=== PATIENT | female | born 1935 | race Caucasian/White ===

== ENCOUNTER → 2016-11-07 | Outpatient (CLI) | payer MEDICARE, MEDICAID ==
[~2016-11-07] MED LIST: MEMA10TA11 PO; METO25TA6 PO; PANT40TA4 PO; PARO-41 PO; PREVACID
== END | disposition home or self-care (01) ==
LOC: MAMMO 08:24
PROVIDERS: ATTEND Specialist
DX: Z12.31 Encounter for screening mammogram for malignant neoplasm of breast (principal)
CPT/HCPCS: G0202

== ENCOUNTER 2017-09-24 10:17 | Emergency (ER) | payer MEDICARE, MEDICAID ==
[~2017-09-24] VITALS: Ht 157.5 cm; Wt 72.0 kg
[~2017-09-24 10:17] MED LIST changes: -MEMA10TA11 PO; +MEMA10TA2 PO
[2017-09-24] MEDS ORDERED: LISI2.5T47 PO (10:23)
[2017-09-24 11:17] LABS: BASOPHILS % 0.7 % (0.0-2.0); EOSINOPHILS % 2.5 % (0.0-5.0); HEMATOCRIT. 39.3 % (36.0-48.0); HEMOGLOBIN. 13.5 g/dL (12.0-16.0); LYMPHOCYTES % 26.5 % (20.0-50.0); MEAN CORPUSCULAR HEMOGLOBIN 35.1 pg (28.0-32.0); MEAN CORPUSCULAR VOLUME 101.7 fL (81.0-99.0); MEAN PLATELET VOLUME 8.8 fl (7.4-10.4); MONOCYTES % 7.5 % (2.0-8.0); NEUTROPHILS % 62.8 % (40.0-76.0); PLATELET 202 x1000/uL (130-400); RED BLOOD CELL COUNT 3.86 mill/uL (4.2-5.4); RED CELL DISTRIBUTION WIDTH 12.6 % (11.6-14.6)
[2017-09-24 11:30] LABS: CARBON DIOXIDE 28 mEq/L (21-32); CHLORIDE 110 mEq/L (98-107); TROPONIN I < 0.02 ng/mL (0.00-0.04)
[2017-09-24 12:11] VITALS: BP 144/74
[2017-09-24 12:19] LABS: CLARITY URINE CLOUDY (CLEAR); COLOR URINE DARK YELLOW (YELLOW); KETONES URINE TRACE (NEGATIVE); LEUKOCYTE ESTERASE URINE 2+ (NEGATIVE); NITRITE URINE NEGATIVE (NEGATIVE); OCCULT BLOOD URINE TRACE (NEGATIVE); PH URINE 5.5 (4.5-8.0); PROTEIN URINE NEGATIVE (NEGATIVE); SPECIFIC GRAVITY URINE 1.026 (1.005-1.030); UROBILINOGEN URINE 0.2 E.U./dL (0.2-1.0)
== END 2017-09-24 13:21 | disposition home or self-care (01) ==
LOC: ER 10:28
DX: S30.0XXA Contusion of lower back and pelvis, initial encounter (principal); R00.2 Palpitations; I10 Essential (primary) hypertension; W18.39XA Other fall on same level, initial encounter; Y93.89 Activity, other specified; Y92.89 Other specified places as the place of occurrence of the external cause; G89.29 Other chronic pain; M77.31 Calcaneal spur, right foot; E78.00 Pure hypercholesterolemia, unspecified
CPT/HCPCS: 36415; 71045; 72170; 73650; 80053; 81001; 83880; 84484; 85025; 93005; 99285

== ENCOUNTER 2018-11-12 17:16 | Inpatient (IN) | payer MEDICARE, MEDICAID ==
[~2018-11-12] VITALS: Ht 157.5 cm; Wt 69.9 kg
[~2018-11-12 17:16] MED LIST changes: +LISI2.5T47 PO
[2018-11-12] MEDS ORDERED: MORPHINE SULFATE 4 MG/ML CPJ (NOT FOR IM USE) IV STA (18:57)
[2018-11-12] MEDS ORDERED: ONDANSETRON HCL 4MG/2ML INJ IV STA (18:57)
[2018-11-12] MEDS ORDERED: SODIUM CHLORIDE 0.9% 1,000 ML IV ONE (18:57)
[2018-11-12 19:13] LABS: BASOPHILS % 0.5 % (0.0-2.0); EOSINOPHILS % 0.6 % (0.0-5.0); HEMOGLOBIN. 13.4 g/dL (12.0-16.0); LYMPHOCYTES % 12.6 % (20.0-50.0); MEAN CORPUSCULAR HEMOGLOBIN 34.8 pg (28.0-32.0); MEAN CORPUSCULAR VOLUME 103.5 fL (81.0-99.0); MEAN PLATELET VOLUME 8.5 fl (7.4-10.4); MONOCYTES % 5.3 % (2.0-8.0); PLATELET 205 x1000/uL (130-400); RED BLOOD CELL COUNT 3.87 mill/uL (4.2-5.4); RED CELL DISTRIBUTION WIDTH 12.9 % (11.6-14.6)
[2018-11-12 19:18] LABS: CHLORIDE 105 mEq/L (98-107)
[2018-11-12 19:21] LABS: INR 1.1; PARTIAL THROMBOPLASTIN TIME 25.5 sec (23.4-31.0); PROTHROMBIN TIME 10.7 sec (9.1-11.1)
[2018-11-12] MEDS ORDERED: MAGNESIUM/ALUMINUM HYDROXIDE/SIMETHICONE 30ML UDC PO PRN (22:30)
[2018-11-12] MEDS ORDERED: HYDRALAZINE 20MG/ML VIAL IV PRN (22:30)
[2018-11-12] MEDS ORDERED: DIPHENHYDRAMINE 50MG/ML VIAL IV PRN (22:30)
[2018-11-12] MEDS ORDERED: ACETAMINOPHEN 325MG TABLET PO PRN (22:30)
[2018-11-12] MEDS ORDERED: ONDANSETRON HCL 4MG/2ML INJ IV PRN (22:30)
[2018-11-12] MEDS ORDERED: CLONIDINE 0.1MG TABLET PO PRN (22:30)
[2018-11-12] MEDS ORDERED: IPRATROPIUM/ALBUTEROL 0.5-3(2.5)MG/3ML NEB INH PRN (22:30)
[2018-11-12] MEDS ORDERED: LORAZEPAM 2MG/ML CPJ IV PRN (22:30)
[2018-11-12] MEDS ORDERED: GUAIFENESIN 200MG/10ML SUGAR FREE UDC PO PRN (22:30)
[2018-11-12] MEDS ORDERED: NA PHOS,M-B/NA PHOS,DI-BA ENEMA 118ML PR PRN (22:30)
[2018-11-12 23:40] VITALS: BP 139/61
[2018-11-12] MEDS ORDERED: HYDRALAZINE 10 MG in SODIUM CHLORIDE 0.9% 49.5 ML IV PRN (23:45)
[2018-11-13 03:48] VITALS: BP 139/61
[2018-11-13 04:00] VITALS: BP 123/59
[2018-11-13 07:23] LABS: CHLORIDE 106 mEq/L (98-107)
[2018-11-13 07:40] LABS: BASOPHILS % 0.4 % (0.0-2.0); EOSINOPHILS % 0.4 % (0.0-5.0); HEMATOCRIT. 37.5 % (36.0-48.0); HEMOGLOBIN. 12.8 g/dL (12.0-16.0); LYMPHOCYTES % 23.2 % (20.0-50.0); MEAN CORPUSCULAR HEMOGLOBIN 35.2 pg (28.0-32.0); MEAN CORPUSCULAR VOLUME 103.1 fL (81.0-99.0); MEAN PLATELET VOLUME 8.9 fl (7.4-10.4); MONOCYTES % 7.2 % (2.0-8.0); NEUTROPHILS % 68.8 % (40.0-76.0); PLATELET 202 x1000/uL (130-400); RED BLOOD CELL COUNT 3.64 mill/uL (4.2-5.4); RED CELL DISTRIBUTION WIDTH 12.8 % (11.6-14.6)
[2018-11-13 08:00] VITALS: BP 120/54
[2018-11-13 12:00] VITALS: BP 122/57
[2018-11-13] MEDS ORDERED: VANCOMYCIN HCL 500 MG/VIAL ONE (12:08)
[2018-11-13] MEDS: DEXT 5%/0.45% NACL 1000ML 1,000 ML IV SCH (12:18)
[2018-11-13] MEDS ORDERED: BACITRACIN 15GM TUBE TOP ONE (15:04)
[2018-11-13 16:00] VITALS: BP 125/78
[2018-11-13 20:00] VITALS: BP 123/54
[2018-11-13] MEDS: ENOXAPARIN 40MG/0.4ML SYR SUBCUT SCH (20:06)
[2018-11-13] MEDS: SODIUM CHLORIDE 0.9% INJ 3ML FLUSH IVF SCH (22:05)
[2018-11-14] VITALS: BP 131/53
[2018-11-14 04:00] VITALS: BP 139/69
[2018-11-14] MEDS: SODIUM CHLORIDE 0.9% INJ 3ML FLUSH IVF SCH ×4 (04:27→22:14)
[2018-11-14] MEDS: DEXT 5%/0.45% NACL 1000ML 1,000 ML IV SCH ×2 (04:28→13:53)
[2018-11-14 06:45] LABS: BASOPHILS % 0.3 % (0.0-2.0); EOSINOPHILS % 0.7 % (0.0-5.0); HEMATOCRIT. 36.6 % (36.0-48.0); HEMOGLOBIN. 12.6 g/dL (12.0-16.0); LYMPHOCYTES % 16.8 % (20.0-50.0); MEAN CORPUSCULAR HEMOGLOBIN 35.5 pg (28.0-32.0); MEAN CORPUSCULAR VOLUME 103.1 fL (81.0-99.0); MEAN PLATELET VOLUME 8.7 fl (7.4-10.4); NEUTROPHILS % 72.2 % (40.0-76.0); PLATELET 190 x1000/uL (130-400); RED BLOOD CELL COUNT 3.55 mill/uL (4.2-5.4); RED CELL DISTRIBUTION WIDTH 12.8 % (11.6-14.6)
[2018-11-14 06:51] LABS: CHLORIDE 105 mEq/L (98-107)
[2018-11-14 07:01] LABS: CREATINE KINASE MB FRACTION 1.9 ng/mL (0.5-3.6); LDL CHOLESTEROL 70 mg/dL (5-100)
[2018-11-14 07:02] LABS: CREATINE KINASE 60 IU/L (26-192)
[2018-11-14 07:03] LABS: HDL CHOLESTEROL 41 mg/dL (40-59)
[2018-11-14 08:00] VITALS: BP 135/59
[2018-11-14] MEDS ORDERED: BACITRACIN 15GM TUBE TOP ONE (09:52)
[2018-11-14] MEDS ORDERED: VANCOMYCIN HCL 500 MG/VIAL ONE (09:53)
[2018-11-14] MEDS ORDERED: BUPIVACAINE HCL/DEXTROSE/PF 0.75% 2ML AMP INJ ONE (10:00)
[2018-11-14] MEDS ORDERED: MIDAZOLAM HCL 2 MG/2 ML VIAL ONE (10:41)
[2018-11-14] MEDS ORDERED: PROPOFOL 200MG/20ML VIAL IV ONE (10:41)
[2018-11-14] MEDS ORDERED: GLYCOPYRROLATE 0.2 MG/ML 2ML VIAL ONE (10:41)
[2018-11-14] MEDS ORDERED: LIDOCAINE HCL/PF 1% 10 MG/ML 5ML VIAL ONE (10:41)
[2018-11-14] MEDS ORDERED: METOCLOPRAMIDE HCL 10MG/2ML VIAL ONE (10:41)
[2018-11-14] MEDS ORDERED: FENTANYL CITRATE/PF 50MCG/ML 2ML VIAL ONE (10:41)
[2018-11-14] MEDS ORDERED: SUCCINYLCHOLINE CHLORIDE 200MG/10ML IV ONE (10:41)
[2018-11-14] MEDS ORDERED: ONDANSETRON HCL 4MG/2ML INJ ONE (10:41)
[2018-11-14] MEDS ORDERED: SODIUM CHLORIDE 0.9% 1,000 ML IV SCH (11:25)
[2018-11-14] MEDS ORDERED: HYDROMORPHONE HCL/PF 2MG/ML CPJ IV PRN (11:30)
[2018-11-14] MEDS ORDERED: ONDANSETRON HCL 4MG/2ML INJ IV PRN (11:30)
[2018-11-14] MEDS ORDERED: MEPERIDINE HCL/PF 25MG/ML CPJ IV PRN (11:30)
[2018-11-14] MEDS: CEFAZOLIN 1000MG PREMIX 50 ML IV SCH ×2 (13:54→22:14)
[2018-11-14 16:00] VITALS: BP 105/57
[2018-11-14 20:00] VITALS: BP 115/58
[2018-11-14] MEDS: ENOXAPARIN 40MG/0.4ML SYR SUBCUT SCH (21:00)
[2018-11-15] VITALS: BP 129/51
[2018-11-15] MEDS: HYDROCODONE/ACETAMINOPHEN 5/325MG TABLET PO PRN ×2 (01:01→10:14)
[2018-11-15] MEDS: DEXT 5%/0.45% NACL 1000ML 1,000 ML IV SCH ×2 (03:09→16:20)
[2018-11-15 04:00] VITALS: BP 123/55
[2018-11-15] MEDS: SODIUM CHLORIDE 0.9% INJ 3ML FLUSH IVF SCH ×3 (05:43→22:52)
[2018-11-15] MEDS: CEFAZOLIN 1000MG PREMIX 50 ML IV SCH ×3 (05:43→23:11)
[2018-11-15 08:00] VITALS: BP 126/61
[2018-11-15 12:00] VITALS: BP 127/41
[2018-11-15] MEDS: HYDROMORPHONE HCL/PF 2MG/ML CPJ IV PRN (14:30)
[2018-11-15 20:00] VITALS: BP 115/57
[2018-11-15] MEDS: ENOXAPARIN 40MG/0.4ML SYR SUBCUT SCH (23:11)
[2018-11-16] VITALS (7 sets, daily range): BP systolic 81–127; BP diastolic 42–54
[2018-11-16] MEDS: DEXT 5%/0.45% NACL 1000ML 1,000 ML IV SCH (00:44)
[2018-11-16] MEDS: SODIUM CHLORIDE 0.9% INJ 3ML FLUSH IVF SCH ×2 (05:23→14:00)
[2018-11-16] MEDS: CEFAZOLIN 1000MG PREMIX 50 ML IV SCH ×3 (05:54→22:00)
[2018-11-16] MEDS: DOCUSATE SODIUM 100MG CAPSULE PO PRN ×2 (06:40→09:32)
[2018-11-16] MEDS: HYDROMORPHONE HCL/PF 2MG/ML CPJ IV PRN ×2 (11:37→14:46)
[2018-11-16] MEDS: ENOXAPARIN 40MG/0.4ML SYR SUBCUT SCH (22:00)
[2018-11-17] VITALS (7 sets, daily range): BP systolic 97–133; BP diastolic 49–62
[2018-11-17] MEDS: HYDROMORPHONE HCL/PF 2MG/ML CPJ IV PRN (02:08)
[2018-11-17] MEDS: CEFAZOLIN 1000MG PREMIX 50 ML IV SCH ×2 (05:13→14:30)
[2018-11-17] MEDS: DOCUSATE SODIUM 100MG CAPSULE PO PRN (14:30)
== END 2018-11-17 17:52 | DRG 481 ==
LOC: ER 17:16 → 6EST 20:32 → ENRESERV 21:00
PROVIDERS: ADMIT Internal Medicine; ATTEND Internal Medicine
PROC: 0QS636Z Reposition Right Upper Femur with Intramedullary Internal Fixation Device, Percutaneous Approach (ICD-10-PCS; principal; 2018-11-14)
DX: S72.141A Displaced intertrochanteric fracture of right femur, initial encounter for closed fracture (principal); E46 Unspecified protein-calorie malnutrition; I11.0 Hypertensive heart disease with heart failure; I50.9 Heart failure, unspecified; S50.311A Abrasion of right elbow, initial encounter; D72.829 Elevated white blood cell count, unspecified; F41.9 Anxiety disorder, unspecified; F32.9 Major depressive disorder, single episode, unspecified; I45.10 Unspecified right bundle-branch block; F03.90 Unspecified dementia, unspecified severity, without behavioral disturbance, psychotic disturbance, mood disturbance, and anxiety; K21.9 Gastro-esophageal reflux disease without esophagitis; W01.0XXA Fall on same level from slipping, tripping and stumbling without subsequent striking against object, initial encounter; Y93.89 Activity, other specified; Y92.89 Other specified places as the place of occurrence of the external cause; Y99.8 Other external cause status; Z79.899 Other long term (current) drug therapy; Z86.73 Personal history of transient ischemic attack (TIA), and cerebral infarction without residual deficits; Z90.710 Acquired absence of both cervix and uterus; Z68.28 Body mass index [BMI] 28.0-28.9, adult
CPT/HCPCS: 36415; 71045; 73070; 73502; 76000; 80061; 82550; 82553; 83735; 84484; 93005; 93306; 93970; 96374; 96375; 97110; 97163; 97530; 99285; C1713; C1769; J0330; J0690; J1170; J1650; J2175; J2250; J2270; J2405; J2704; J2765; J3010; J3370; J3490; J7030; J7040; A4315

== ENCOUNTER 2018-11-17 17:45 | Inpatient (IN) | payer MEDICARE, MEDICAID ==
[~2018-11-17] VITALS: Ht 157.5 cm; Wt 70.8 kg
[2018-11-17] MEDS ORDERED: DIPHENHYDRAMINE 25MG CAPSULE PO PRN (19:30)
[2018-11-17] MEDS ORDERED: SODIUM CHLORIDE 0.9% INJ 3ML FLUSH IVF NR (19:30)
[2018-11-17] MEDS ORDERED: IPRATROPIUM/ALBUTEROL 0.5-3(2.5)MG/3ML NEB HHN PRN (19:30)
[2018-11-17 19:45] VITALS: BP 100/70
[2018-11-17] MEDS ORDERED: HYDROMORPHONE HCL/PF 2MG/ML CPJ IV PRN (19:45)
[2018-11-17] MEDS ORDERED: NA PHOS,M-B/NA PHOS,DI-BA ENEMA 118ML PR PRN (19:45)
[2018-11-17] MEDS ORDERED: GUAIFENESIN 200MG/10ML SUGAR FREE UDC PO PRN (19:45)
[2018-11-17] MEDS ORDERED: LORAZEPAM 0.5MG TABLET PO PRN (19:45)
[2018-11-17] MEDS ORDERED: CLONIDINE 0.1MG TABLET PO PRN (19:45)
[2018-11-17 20:00] VITALS: BP 97/70
[2018-11-17] MEDS ORDERED: SODIUM CHLORIDE 0.9% INJ 3ML FLUSH IVF PRN (20:00)
[2018-11-17] MEDS ORDERED: CEFAZOLIN SODIUM 1000MG/VIAL IV SCH (21:00)
[2018-11-17] MEDS: LACTULOSE 20G/30ML UDC PO SCH (22:00)
[2018-11-17 22:37] VITALS: BP 108/72
[2018-11-18] MEDS: CEFAZOLIN 1000MG PREMIX 50 ML IV SCH ×4 (00:01→21:21)
[2018-11-18] MEDS: ENOXAPARIN 40MG/0.4ML SYR SUBCUT SCH ×2 (00:01→21:21)
[2018-11-18] MEDS: LACTULOSE 20G/30ML UDC PO SCH ×3 (05:39→22:00)
[2018-11-18] MEDS: ACETAMINOPHEN 325MG TABLET PO PRN (05:39)
[2018-11-18 07:56] VITALS: BP 114/66
[2018-11-18] MEDS: DOCUSATE SODIUM 100MG CAPSULE PO SCH ×3 (08:34→21:23)
[2018-11-18] MEDS: HYDROCODONE/ACETAMINOPHEN 5/325MG TABLET PO PRN (12:47)
[2018-11-18] MEDS: ONDANSETRON HCL 4MG/2ML INJ IV PRN (13:34)
[2018-11-18 20:00] VITALS: BP 121/58
[2018-11-19] MEDS: CEFAZOLIN 1000MG PREMIX 50 ML IV SCH ×3 (05:45→21:37)
[2018-11-19] MEDS: LACTULOSE 20G/30ML UDC PO SCH ×3 (06:00→21:36)
[2018-11-19 08:00] VITALS: BP 105/57
[2018-11-19] MEDS: ACETAMINOPHEN 325MG TABLET PO PRN (09:12)
[2018-11-19] MEDS: DOCUSATE SODIUM 100MG CAPSULE PO SCH ×2 (09:12→21:36)
[2018-11-19] MEDS: ONDANSETRON HCL 4MG/2ML INJ IV PRN ×2 (09:55→16:05)
[2018-11-19 20:00] VITALS: BP 125/49
[2018-11-19] MEDS: ENOXAPARIN 40MG/0.4ML SYR SUBCUT SCH (21:37)
[2018-11-19] MEDS: MUPIROCIN 2% OINT 22GM NS SCH (22:30)
[2018-11-20] MEDS: LACTULOSE 20G/30ML UDC PO SCH ×3 (05:13→21:29)
[2018-11-20] MEDS: ACETAMINOPHEN 325MG TABLET PO PRN (05:25)
[2018-11-20] MEDS: CEFAZOLIN 1000MG PREMIX 50 ML IV SCH ×3 (05:25→21:29)
[2018-11-20 08:00] VITALS: BP 126/62
[2018-11-20] MEDS: HYDROCODONE/ACETAMINOPHEN 5/325MG TABLET PO PRN (09:05)
[2018-11-20] MEDS: DOCUSATE SODIUM 100MG CAPSULE PO SCH ×2 (09:05→21:00)
[2018-11-20] MEDS: MUPIROCIN 2% OINT 22GM NS SCH ×2 (09:05→21:29)
[2018-11-20] MEDS: ONDANSETRON HCL 4MG/2ML INJ IV PRN (13:43)
[2018-11-20 20:21] VITALS: BP 116/53
[2018-11-20 22:00] VITALS: BP 124/64
[2018-11-20] MEDS: ENOXAPARIN 40MG/0.4ML SYR SUBCUT SCH (22:03)
[2018-11-21 02:00] VITALS: BP 128/62
[2018-11-21] MEDS: CEFAZOLIN 1000MG PREMIX 50 ML IV SCH (05:35)
[2018-11-21] MEDS: LACTULOSE 20G/30ML UDC PO SCH ×3 (05:35→22:07)
[2018-11-21 06:22] LABS: EOSINOPHILS % 6.2 % (0.0-5.0); HEMATOCRIT. 27.8 % (36.0-48.0); HEMOGLOBIN. 9.6 g/dL (12.0-16.0); LYMPHOCYTES % 24.3 % (20.0-50.0); MEAN CORPUSCULAR HEMOGLOBIN 35.7 pg (28.0-32.0); MEAN CORPUSCULAR VOLUME 103.2 fL (81.0-99.0); MEAN PLATELET VOLUME 7.8 fl (7.4-10.4); MONOCYTES % 8.4 % (2.0-8.0); NEUTROPHILS % 60.1 % (40.0-76.0); PLATELET 280 x1000/uL (130-400); RED BLOOD CELL COUNT 2.69 mill/uL (4.2-5.4); RED CELL DISTRIBUTION WIDTH 12.8 % (11.6-14.6)
[2018-11-21 06:33] LABS: CHLORIDE 106 mEq/L (98-107)
[2018-11-21 08:00] VITALS: BP 147/88
[2018-11-21] MEDS: DOCUSATE SODIUM 100MG CAPSULE PO SCH ×2 (08:00→22:06)
[2018-11-21] MEDS: ACETAMINOPHEN 325MG TABLET PO PRN (08:47)
[2018-11-21] MEDS: MUPIROCIN 2% OINT 22GM NS SCH ×2 (09:47→22:05)
[2018-11-21] MEDS: ONDANSETRON HCL 4MG/2ML INJ IV PRN (09:48)
[2018-11-21 20:00] VITALS: BP 155/55
[2018-11-21] MEDS ORDERED: MUPIROCIN 2% OINT 22GM NS SCH (21:00)
[2018-11-21] MEDS: ENOXAPARIN 40MG/0.4ML SYR SUBCUT SCH (22:07)
[2018-11-22] MEDS: LACTULOSE 20G/30ML UDC PO SCH ×3 (06:11→21:59)
[2018-11-22 08:00] VITALS: BP 143/61
[2018-11-22] MEDS: MUPIROCIN 2% OINT 22GM NS SCH ×2 (09:16→23:06)
[2018-11-22] MEDS: DOCUSATE SODIUM 100MG CAPSULE PO SCH ×2 (09:16→21:56)
[2018-11-22 20:00] VITALS: BP 140/59
[2018-11-22] MEDS: ENOXAPARIN 40MG/0.4ML SYR SUBCUT SCH (21:57)
[2018-11-22] MEDS: ACETAMINOPHEN 325MG TABLET PO PRN (23:07)
[2018-11-23] MEDS: LACTULOSE 20G/30ML UDC PO SCH ×3 (05:41→21:42)
[2018-11-23 08:00] VITALS: BP 152/57
[2018-11-23] MEDS: MUPIROCIN 2% OINT 22GM NS SCH ×2 (09:03→21:42)
[2018-11-23] MEDS: DOCUSATE SODIUM 100MG CAPSULE PO SCH ×2 (09:03→21:40)
[2018-11-23] MEDS: ONDANSETRON 4MG ODT PO PRN ×2 (09:54→21:54)
[2018-11-23] MEDS: OMEPRAZOLE 20MG CAPSULE EXTENDED RELEASE PO SCH (18:36)
[2018-11-23 20:00] VITALS: BP 133/61
[2018-11-23] MEDS: ENOXAPARIN 40MG/0.4ML SYR SUBCUT SCH (21:39)
[2018-11-23] MEDS: ONDANSETRON HCL 4MG/2ML INJ IV PRN (21:39)
[2018-11-24 03:00] LABS: CLARITY URINE TURBID (CLEAR); COLOR URINE YELLOW (YELLOW); KETONES URINE NEGATIVE (NEGATIVE); LEUKOCYTE ESTERASE URINE 1+ (NEGATIVE); NITRITE URINE POSITIVE (NEGATIVE); OCCULT BLOOD URINE NEGATIVE (NEGATIVE); PROTEIN URINE NEGATIVE (NEGATIVE); SPECIFIC GRAVITY URINE 1.016 (1.005-1.030)
[2018-11-24 06:17] LABS: BASOPHILS % 0.8 % (0.0-2.0); EOSINOPHILS % 3.3 % (0.0-5.0); HEMATOCRIT. 29.5 % (36.0-48.0); HEMOGLOBIN. 9.9 g/dL (12.0-16.0); MEAN CORPUSCULAR HEMOGLOBIN 35.6 pg (28.0-32.0); MEAN CORPUSCULAR VOLUME 105.4 fL (81.0-99.0); MEAN PLATELET VOLUME 8.3 fl (7.4-10.4); MONOCYTES % 7.8 % (2.0-8.0); NEUTROPHILS % 64.1 % (40.0-76.0); PLATELET 341 x1000/uL (130-400); RED BLOOD CELL COUNT 2.79 mill/uL (4.2-5.4); RED CELL DISTRIBUTION WIDTH 13.5 % (11.6-14.6)
[2018-11-24] MEDS: OMEPRAZOLE 20MG CAPSULE EXTENDED RELEASE PO SCH (06:17)
[2018-11-24] MEDS: LACTULOSE 20G/30ML UDC PO SCH ×3 (06:17→21:45)
[2018-11-24 08:00] VITALS: BP 155/76
[2018-11-24] MEDS: DOCUSATE SODIUM 100MG CAPSULE PO SCH ×2 (09:15→21:45)
[2018-11-24] MEDS: MUPIROCIN 2% OINT 22GM NS SCH (09:17)
[2018-11-24] MEDS: ONDANSETRON 4MG ODT PO PRN (10:07)
[2018-11-24 20:00] VITALS: BP 136/55
[2018-11-24 21:00] VITALS: BP 130/62
[2018-11-24] MEDS: ENOXAPARIN 40MG/0.4ML SYR SUBCUT SCH (21:46)
[2018-11-25] MEDS: LACTULOSE 20G/30ML UDC PO SCH ×3 (05:27→22:00)
[2018-11-25] MEDS: OMEPRAZOLE 20MG CAPSULE EXTENDED RELEASE PO SCH (06:03)
[2018-11-25 08:00] VITALS: BP 118/66
[2018-11-25] MEDS: DOCUSATE SODIUM 100MG CAPSULE PO SCH ×2 (09:00→21:59)
[2018-11-25] MEDS: ONDANSETRON 4MG ODT PO PRN (09:40)
[2018-11-25 10:33] LABS: HEMATOCRIT 34.7 % (36.0-48.0); HEMOGLOBIN 11.5 g/dL (12.0-16.0)
[2018-11-25 10:50] LABS: TOTAL IRON BINDING CAPACITY 241 ug/dL (250-450)
[2018-11-25] MEDS: METOCLOPRAMIDE HCL 10MG TABLET PO SCH ×2 (14:47→17:19)
[2018-11-25 20:00] VITALS: BP 131/57
[2018-11-25] MEDS: ENOXAPARIN 40MG/0.4ML SYR SUBCUT SCH (22:00)
[2018-11-25] MEDS: ACETAMINOPHEN 325MG TABLET PO PRN (22:27)
[2018-11-26] MEDS: LACTULOSE 20G/30ML UDC PO SCH ×3 (06:17→22:09)
[2018-11-26] MEDS: OMEPRAZOLE 20MG CAPSULE EXTENDED RELEASE PO SCH (06:17)
[2018-11-26 08:00] VITALS: BP 147/66
[2018-11-26] MEDS: ACETAMINOPHEN 325MG TABLET PO PRN ×2 (08:54→22:25)
[2018-11-26] MEDS: METOCLOPRAMIDE HCL 10MG TABLET PO SCH ×2 (08:54→18:29)
[2018-11-26] MEDS: DOCUSATE SODIUM 100MG CAPSULE PO SCH ×2 (08:54→21:00)
[2018-11-26] MEDS: ONDANSETRON 4MG ODT PO PRN ×2 (09:48→17:15)
[2018-11-26 20:00] VITALS: BP 115/93
[2018-11-26] MEDS: ENOXAPARIN 40MG/0.4ML SYR SUBCUT SCH (22:13)
[2018-11-27] MEDS: LACTULOSE 20G/30ML UDC PO SCH ×3 (06:09→21:44)
[2018-11-27] MEDS: OMEPRAZOLE 20MG CAPSULE EXTENDED RELEASE PO SCH (06:10)
[2018-11-27 08:02] VITALS: BP 93/38
[2018-11-27] MEDS: METOCLOPRAMIDE HCL 10MG TABLET PO SCH ×2 (08:46→17:17)
[2018-11-27] MEDS: DOCUSATE SODIUM 100MG CAPSULE PO SCH ×2 (09:00→21:45)
[2018-11-27] MEDS: ONDANSETRON 4MG ODT PO PRN ×2 (09:08→16:15)
[2018-11-27 20:00] VITALS: BP 141/63
[2018-11-27] MEDS: ENOXAPARIN 40MG/0.4ML SYR SUBCUT SCH (21:45)
[2018-11-28] MEDS: LACTULOSE 20G/30ML UDC PO SCH ×2 (06:49→12:24)
[2018-11-28] MEDS: OMEPRAZOLE 20MG CAPSULE EXTENDED RELEASE PO SCH (06:49)
[2018-11-28 08:00] VITALS: BP 146/63
[2018-11-28] MEDS: DOCUSATE SODIUM 100MG CAPSULE PO SCH ×2 (08:25→21:54)
[2018-11-28] MEDS: METOCLOPRAMIDE HCL 10MG TABLET PO SCH ×2 (08:49→18:00)
[2018-11-28 20:00] VITALS: BP 139/53
[2018-11-28] MEDS: ENOXAPARIN 40MG/0.4ML SYR SUBCUT SCH (21:01)
[2018-11-29] MEDS: OMEPRAZOLE 20MG CAPSULE EXTENDED RELEASE PO SCH (06:03)
[2018-11-29 08:05] VITALS: BP 145/57
[2018-11-29] MEDS: METOCLOPRAMIDE HCL 10MG TABLET PO SCH (08:12)
[2018-11-29] MEDS: DOCUSATE SODIUM 100MG CAPSULE PO SCH (08:17)
[2018-11-29 10:49] VITALS: BP 145/57
== END 2018-11-29 13:57 | disposition home health service (06) | DRG 536 ==
PROVIDERS: ADMIT Psychiatry & Neurology Neurology; ATTEND Internal Medicine
DX: S72.141A Displaced intertrochanteric fracture of right femur, initial encounter for closed fracture (principal); E46 Unspecified protein-calorie malnutrition; W18.39XA Other fall on same level, initial encounter; I10 Essential (primary) hypertension; R32 Unspecified urinary incontinence; K21.9 Gastro-esophageal reflux disease without esophagitis; F41.8 Other specified anxiety disorders; F03.90 Unspecified dementia, unspecified severity, without behavioral disturbance, psychotic disturbance, mood disturbance, and anxiety; D50.9 Iron deficiency anemia, unspecified; R29.6 Repeated falls; R15.9 Full incontinence of feces; M19.90 Unspecified osteoarthritis, unspecified site; R11.2 Nausea with vomiting, unspecified; R41.89 Other symptoms and signs involving cognitive functions and awareness; L89.90 Pressure ulcer of unspecified site, unspecified stage; K59.09 Other constipation; K76.0 Fatty (change of) liver, not elsewhere classified; Y93.89 Activity, other specified; Y92.89 Other specified places as the place of occurrence of the external cause; Y99.8 Other external cause status; Z86.73 Personal history of transient ischemic attack (TIA), and cerebral infarction without residual deficits; Z91.81 History of falling; Z79.899 Other long term (current) drug therapy; Z68.28 Body mass index [BMI] 28.0-28.9, adult
CPT/HCPCS: 36415; 74018; 76700; 80048; 82270; 82728; 83540; 83550; 85014; 85018; 86677; 87077; 87186; 92523; 97110; 97116; 97162; 97166; 97530; 97535; A6261; J0690; J1650; J2405; J7040; J7620; J8597; Q0162

== ENCOUNTER 2018-12-03 17:24 | Emergency (ER) | payer MEDICARE, MEDICAID ==
[~2018-12-03] VITALS: Ht 172.7 cm; Wt 60.0 kg
[2018-12-04 00:51] VITALS: BP 129/89
== END 2018-12-04 00:56 | disposition home or self-care (01) ==
LOC: ER 17:24
DX: R42 Dizziness and giddiness (principal); S70.01XA Contusion of right hip, initial encounter; I10 Essential (primary) hypertension; W01.0XXA Fall on same level from slipping, tripping and stumbling without subsequent striking against object, initial encounter; Y93.01 Activity, walking, marching and hiking; Y92.89 Other specified places as the place of occurrence of the external cause; Z86.73 Personal history of transient ischemic attack (TIA), and cerebral infarction without residual deficits
CPT/HCPCS: 73502; 99283